=== PATIENT | male | born 1950 | race Caucasian/White ===

== ENCOUNTER → 2017-11-26 | Outpatient (CLI) | payer MEDICARE ==
--- NOTE | 2017-11-26 13:44 | US ---
EXAMINATION TYPE: US kidneys/renal and bladder DATE OF EXAM: 11/26/2017 COMPARISON: NONE CLINICAL HISTORY: R10.9 Rt Flank Pain. Large body habitus. Limits visualization EXAM MEASUREMENTS: Right Kidney: 11.5 x 5.6 x 5.8 cm Left Kidney: 11.5 x 5.3 x 5.8 cm Post Void Residual Volume: 99.1 mL Right Kidney: Superior pole obscured by bowel gas Left Kidney: No hydronephrosis or masses seen Bladder: wnl Bilateral Jets seen: Yes Normal Post Void Residual: No There is no evidence for hydronephrosis at this point in time. No nephrolithiasis is seen. No padmini s are identified. The urinary bladder is anechoic. Bilateral ureteral jets are seen. IMPRESSION: Suboptimal study without hydronephrosis bilaterally or suspicious finding seen to account for patient 's symptoms.
== END | disposition home or self-care (01) ==
LOC: RADUSWWP 13:09
PROVIDERS: ATTEND Family Medicine
DX: R10.9 Unspecified abdominal pain (principal)
CPT/HCPCS: 76770